=== PATIENT | female | born 2000 | race Caucasian/White ===

== ENCOUNTER → 2018-04-01 | Outpatient (REF) | payer OTHER | LOC: M LAB REF 12:11 | DX: N39.0 Urinary tract infection, site not specified (principal) | CPT/HCPCS: 87186 ==

== ENCOUNTER 2018-04-19 06:56 | Day surgery (SDC) | payer BC, OTHER ==
[2018-04-19] MEDS ORDERED: PROPOFOL 200 MG/20 ML VIAL As Ordered ×2 (07:06)
[2018-04-19] MEDS ORDERED: LIDOCAINE 2% INJ 100 MG/5 ML SDV (FOR ANES.) As Ordered (07:07)
[2018-04-19] MEDS: NS 1,000 ML IV (07:11)
== END 2018-04-19 09:15 | disposition home or self-care (01) ==
LOC: M OPP 06:56
DX: K59.00 Constipation, unspecified (principal); R10.9 Unspecified abdominal pain; K63.89 Other specified diseases of intestine; K64.8 Other hemorrhoids; K52.9 Noninfective gastroenteritis and colitis, unspecified; F41.9 Anxiety disorder, unspecified; E66.9 Obesity, unspecified; F90.9 Attention-deficit hyperactivity disorder, unspecified type; Z86.19 Personal history of other infectious and parasitic diseases; Z80.3 Family history of malignant neoplasm of breast
CPT/HCPCS: 45380

== ENCOUNTER 2020-06-04 18:25 | Inpatient (IN) | payer BC, OTHER ==
[~2020-06-04] VITALS: Ht 177.8 cm; Wt 102.5 kg
[~2020-06-04 18:25] MED LIST: AMPH1CAP5 PO; MIRE1IUD IU; PARO20TA3 PO
[2020-06-04 19:21] LABS: HEMATOCRIT 45.7 % (36.0-47.0); HEMOGLOBIN 14.7 g/dl (12.0-15.5); MEAN CORPUSCULAR HEMOGLOBIN 28.7 pg (27.0-33.0); MEAN CORPUSCULAR HGB CONC 32.2 g/dl (32.0-36.5); MEAN CORPUSCULAR VOLUME 89.3 fl (80.0-96.0); PLATELET COUNT, AUTOMATED 277 10^3/uL (150-450); RED BLOOD COUNT 5.12 10^6/uL (4.00-5.40); WHITE BLOOD COUNT 9.3 10^3/uL (4.0-10.0)
[2020-06-04 19:40] LABS: AMPHETAMINES LEVEL URINE POSITIVE (NEGATIVE); BARBITURATES URINE NEGATIVE (NEGATIVE); BENZODIAZEPINES URINE NEGATIVE (NEGATIVE); CANNABINOIDS URINE NEGATIVE (NEGATIVE); COCAINE METABOLITE URINE NEGATIVE (NEGATIVE); METHADONE URINE NEGATIVE (NEGATIVE); OPIATES URINE NEGATIVE (NEGATIVE); PHENCYCLIDINE URINE NEGATIVE (NEGATIVE)
[2020-06-04 19:50] LABS: ALT/SGPT 31 U/L (12-78); BILIRUBIN,DIRECT 0.1 MG/DL (0.0-0.2); BILIRUBIN,TOTAL 0.3 MG/DL (0.2-1.0); BLOOD UREA NITROGEN 8 MG/DL (7-18); CALCIUM LEVEL 9.5 MG/DL (8.5-10.1); CARBON DIOXIDE LEVEL 31 MEQ/L (21-32); CHLORIDE LEVEL 104 MEQ/L (98-107); CREATININE FOR GFR 0.88 MG/DL (0.55-1.30); GLOMERULAR FILTRATION RATE > 60.0 (>60); GLUCOSE, FASTING 95 MG/DL (70-100); POTASSIUM SERUM 3.9 MEQ/L (3.5-5.1); SALICYLATE LEVEL < 1.7 MG/DL (5.0-30.0); SODIUM LEVEL 142 MEQ/L (136-145); TOTAL PROTEIN 7.7 GM/DL (6.4-8.2)
[2020-06-04 19:51] LABS: ACETAMINOPHEN LEVEL < 2.0 UG/ML (10.0-30.0); ETHYL ALCOHOL (ETHANOL) < 0.003 % (0.000-0.010)
[2020-06-04] MEDS ORDERED: IBUPROFEN 600MG TAB PO ONE (20:45)
[2020-06-04] MEDS ORDERED: TRAZ-257 PO (21:18)
[2020-06-04] MEDS ORDERED: ADDE30CA3 PO (21:18)
[2020-06-04] MEDS ORDERED: ZIPR20CA13 PO (21:18)
[2020-06-04] MEDS ORDERED: ZIPR40CA11 PO (21:18)
[2020-06-04] MEDS ORDERED: hydrOXYzine 50 MG TAB PO STA (21:50)
[2020-06-04] MEDS ORDERED: OLANZapine ORAL DISINTEGRATING TAB 5MG PO ONE (22:45)
[2020-06-04] MEDS ORDERED: MOM 30ML SUSPENSION UDC PO PRN (22:45)
[2020-06-04] MEDS ORDERED: OLANZapine ORAL DISINTEGRATING TAB 5MG PO PRN (22:45)
[2020-06-04] MEDS ORDERED: ACETAMINOPHEN TAB 650MG DOSE (2X325MG) PO PRN (22:45)
[2020-06-04] MEDS ORDERED: MAALOX 30 ML SUSP *UDC PO PRN (22:45)
[2020-06-04 22:55] LABS: HCG, SERUM QUALITATIVE NEGATIVE (NEGATIVE)
[2020-06-05] MEDS: traZODone 100 MG TAB PO SCH ×2 (00:21→21:49)
[2020-06-05 06:38] VITALS: BP 139/84
--- NOTE | 2020-06-05 10:17 | HPEPDOC ---
[facility] Medical History & Physical Date of Admission Jun 05, 2020 Date of Service: Jun 05, 2020 History and Physical CHIEF COMPLAINT: Suicidal thoughts. HISTORY OF PRESENT ILLNESS: Patient is a 19-year-old female admitted to the psychiatric unit for suicidal thoughts. Patient tells me she has no past medical history other than ADHD. Tells me she is currently feeling anxious and came to the hospital because she was having thoughts of hurting herself. I am asked to provide a medical assessment of patient admitted to the psychiatric unit. My assessment is limited to medical problems and does not address any psychiatric problems which is deferred to the in-house psychiatrist. PAST MEDICAL HISTORY: ADHD PAST SURGICAL HISTORY: Denies SOCIAL HISTORY: Denies any illicit drug abuse. Denies smoking tobacco. Endorses drinking alcohol socially with friends. FAMILY HISTORY: Noncontributory ALLERGIES: Please see below. REVIEW OF SYSTEMS: Constitutional: No sweating or weight loss Eyes: No eye pain or acute blurred vision HENT: No complaints of headache or sore throat Cadiovascular: No Chest pain or palpitations Pulm: No SOB or cough Gastrointestinal: No N/V, no abdominal pain. Genitourinary: No dysuria or hematuria Musculoskeletal: No back pain or joint pain Skin: No rash Neurological: No weakness. HOME MEDICATIONS: Please see below. PHYSICAL EXAMINATION: Constitutional: Awake and alert, in no apparent distress. Overweight. ENT: Sclera are clear. Mucosa is moist. Respiratory: Lungs CTA bilaterally. No respiratory distress. No use of accessory muscles. Cardiovascular: RRR S1 and S2 are normal, no murmur Gastrointestinal: Abdomen is soft, non distended, non tender, BS present. Musculoskeletal: No edema Neurologic: No focal neurological deficit. Mental Status: A&O x3, normal affect Skin: Warm, dry LABORATORY DATA: See below. MICROBIOLOGY: Please see below. A/P 19-year-old female admitted for suicidal thoughts. Hospitalist was asked to do a medical evaluation. Patient's appears healthy other than psychiatric issues. #Elevated blood pressure without a diagnosis of hypertension: There was one elevated blood pressure reading of 139/84 this morning. Patient does not have a history of hypertension. If blood pressure remains in this range I would start with lifestyle modifications including healthier diet and avoiding salt in the diet as well as weight loss as patient is obese. I discussed this with the patient. I would hold off on starting antihypertensive this time. # TSH elevated: TSH is elevated to 5.1. I recommend obtaining a free T4. If normal patient can follow-up with her PCP. If abnormal please notify me # ADHD: Per psych A Yousef Hospitalist Vital Signs Vital Signs Date Time Temp Pulse Resp B/P (MAP) Pulse Ox O2 Delivery O2 Flow Rate FiO2 06/05/20 06:38 97.0 96 12 139/84 (102) Room Air 06/04/20 18:26 100 Laboratory Data Labs 24H Laboratory Tests 2 06/04/20 18:57: Nucleated Red Blood Cells % (auto) 0.0, Anion Gap 7L, Glomerular Filtration Rate > 60.0, Calcium Level 9.5, Total Bilirubin 0.3, Direct Bilirubin 0.1, Aspartate Amino Transf (AST/SGOT) 14, Alanine Aminotransferase (ALT/SGPT) 31, Alkaline Phosphatase 103, Total Protein 7.7, Albumin 4.0, Albumin/Globulin Ratio 1.1L, Thyroid Stimulating Hormone (TSH) 5.160H, Human Chorionic Gonadotropin, Qual NEGATIVE, Salicylates Level < 1.7L, Urine Opiates Screen NEGATIVE, Urine Methadone Screen NEGATIVE, Acetaminophen Level < 2.0L, Urine Barbiturates Screen NEGATIVE, Urine Phencyclidine Screen NEGATIVE, Urine Amphetamines Screen POSITIVEH, Urine Benzodiazepines Screen NEGATIVE, Urine Cocaine Metabolite Screen NEGATIVE, Urine Cannabinoids Screen NEGATIVE, Ethyl Alcohol Level < 0.003 CBC/BMP Laboratory Tests 06/04/20 18:57 Home Medications Scheduled Dextroamphetamine/Amphetamine (Adderall Xr 30 mg Capsule) 30 Mg Cap.er.24h, 30 MG PO QAM Trazodone HCl (Trazodone HCl) 100 Mg Tablet, 100 MG PO QHS Ziprasidone HCl (Ziprasidone HCl) 20 Mg Capsule, 20 MG PO QAM Ziprasidone HCl (Ziprasidone HCl) 40 Mg Capsule, 40 MG PO QHS Allergies Coded Allergies: amoxicillin (Verified Allergy, Mild, RASH, 06/04/20) A-FIB/CHADSVASC A-FIB History Current/History of A-Fib/PAF?: No MAXWELLSEJANINA March MD Jun 05, 2020 09:56
[2020-06-05 10:46] LABS: FREE T4 0.98 NG/DL (0.76-1.46)
[2020-06-05] MEDS: OLANZapine ORAL DISINTEGRATING TAB 5MG PO PRN (14:47)
[2020-06-05] MEDS: ZIPRASIDONE 20MG CAPSULE (GEODON) PO SCH (17:17)
[2020-06-05 18:00] VITALS: BP 121/79
[2020-06-06 06:53] VITALS: BP 131/81
[2020-06-06] MEDS: ZIPRASIDONE 20MG CAPSULE (GEODON) PO SCH ×2 (09:33→18:03)
[2020-06-06] MEDS: OLANZapine ORAL DISINTEGRATING TAB 5MG PO PRN ×2 (13:11→18:40)
[2020-06-06 17:47] VITALS: BP 126/77
[2020-06-06] MEDS: traZODone 100 MG TAB PO SCH (21:36)
[2020-06-07 06:40] VITALS: BP 140/80
[2020-06-07] MEDS: ZIPRASIDONE 20MG CAPSULE (GEODON) PO SCH (07:43)
--- NOTE | 2020-06-07 08:56 | IPNPDOC ---
Text Note Date of Service The patient was seen on 06/07/20. NOTE Subjective Patient was seen and examined this morning. No overnight medical events reported to me. Asked to reevaluate the patient's morning. Blood pressure still elevated patient tells me it's because she is very stressed while in the psychiatric unit unit waiting to see psychiatrist and hoping to leave because she has a court date. Objective Constitutional: Awake and alert, in no apparent distress. Overweight. Appears calm ENT: Sclera are clear. Mucosa is moist. Respiratory: Lungs CTA bilaterally. No respiratory distress. No use of accessory muscles. Cardiovascular: RRR S1 and S2 are normal, no murmur Gastrointestinal: Abdomen is soft, non distended, non tender, BS present. Musculoskeletal: No edema Neurologic: No focal neurological deficit. Mental Status: A&O x3, normal affect Skin: Warm, dry Assessment/plan 19-year-old female admitted for suicidal thoughts. Hospitalist was asked to do a medical evaluation. Patient's appears healthy other than psychiatric issues. # Essential HTN: Blood pressure has been elevated on multiple occasions. Patient can now be diagnosed with essential hypertension. I would continue with lifestyle modifications including healthier diet and avoiding salt in the diet as well as weight loss as patient is obese. There is a possibility that patient's blood pressure is elevated due to stress well being admitted to the inpatient setting so I will not start an antihypertensive this time and will have the issue follow-up with PCP and recheck blood pressure to see appropriateness of starting antihypertensives. I'm hesitant to start antihypertensives and such a young person without first allowing some time for mitral modifications. # TSH elevated: TSH is elevated to 5.1. free T4 is normal. Can follow-up with her PCP to recheck TSH in 4-6 weeks. # Rest per psych A Yousef Hospitalist VS,Petey, I+O VS, Petey, I+O Vital Signs Date Time Temp Pulse Resp B/P (MAP) Pulse Ox O2 Delivery O2 Flow Rate FiO2 06/07/20 06:40 97.6 89 14 140/80 (100) 100 Room Air JANINA SOLOMON MD Jun 07, 2020 08:56
[2020-06-07] MEDS: OLANZapine ORAL DISINTEGRATING TAB 5MG PO PRN ×2 (09:06→14:43)
[2020-06-07] MEDS ORDERED: GEOD20CA PO (13:59)
--- NOTE | 2020-06-07 15:32 | MHDSPDOC ---
[facility] Discharge Summary Discharge Summary DATE OF ADMISSION: Jun 04, 2020 at 22:39 DATE OF DISCHARGE: June 07, 2020 at 1512 DISCHARGE DIAGNOSES: 1. Schizoaffective Disorder REASON FOR ADMISSION: Patient is a 19 year old Single, Employed, Domiciled, Female who self-reported to [facility] for complaints of mood swings, depressive symptoms, auditory and visual hallucinations and paranoia. Patient was reported increased paranoid thoughts, states that she had to write her symptoms on notes because she has a memory. Complaints of having poor supports, lives alone, reports having fears of being alone or killed. CONSULTANTS INVOLVED: See Medical H + P by Medical MD TREATMENT AND PROGRESS ON THE UNIT : Patient was admitted on 06/04/2020 for her complaints of mood swings and psychotic symptoms. Patient was afforded the following treatment modalities: 1. Individual Therapy 2. Group Therapy 3. Medication Management 4. Milieu Therapy 5. Safe Environment HOSPITAL COURSE: Patient was started on her home medications, with an increase of Geodon to 40 mg twice daily. On interview patient is reporting an improvement in her thinking, denies mood swings, depression, anxiety and states that she is not having paranoid thoughts. DISCHARGE ASSESSMENT: Patient is stable for discharge. She has a future appointment with her therapist and is requesting discharge today because she has a dog that she is worried about. Her boyfriend is caring for the dog but she feels that this is not his responsibility and states that she is appreciative but needs to be able to care for her dog. She also states that she would like to return to work and has some general cleaning to do before she returns to work tomorrow. MENTAL STATUS EXAMINATION ON DISCHARGE: Patient is a 23-year old female, who is reporting no depressive or suicidal ideation today. She appears her stated age, she is bright mood and affected. She is dressed appropriate, her hygiene and grooming is good. Eye contact is good Speech is spontaneous, fluid and conversant. She has normal tone, volume and rate Language skills are good. Thought processes including: reality based, linear and goal oriented. Thought content: no abnormal psych symptoms noted in the interview Abstract reasoning, and computation: good Description of associations: denies/not observed Description of abnormal or psychotic thoughts: denies/not observed Judgment: good Insight: good Orientation to person, place, time and situation Recent and remote memory: intact. Attention span and concentration: good. Language: expansive Fund of knowledge: average Mood: "I feel better" Affect: congruent with stated mood MEDICATIONS ON DISCHARGE: See Medication Reconciliation PLAN/FOLLOWUP ARRANGEMENTS: [facility] The amount of time spent in the coordination of care for this patient was approximately 30 minutes. Vital Signs/I&Os Vital Signs Date Time Temp Pulse Resp B/P (MAP) Pulse Ox O2 Delivery O2 Flow Rate FiO2 06/07/20 06:40 97.6 89 14 140/80 (100) 100 Room Air Medications Scheduled Dextroamphetamine/Amphetamine (Adderall Xr 30 mg Capsule) 30 Mg Cap.er.24h, 30 MG PO QAM, (Reported) Trazodone HCl (Trazodone HCl) 100 Mg Tablet, 100 MG PO QHS, (Reported) Ziprasidone HCl (Geodon) 20 Mg Capsule, 40 MG PO BIDWM for Antipsychotic, #28 Allergies Coded Allergies: amoxicillin (Verified Allergy, Mild, RASH, 06/04/20) JOVANNY COLEMAN NP Jun 07, 2020 15:32
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
== END 2020-06-07 16:50 | disposition home or self-care (01) | DRG 885 ==
LOC: M ED 18:25 → M ED INP 22:39 → M PSY 23:43
PROVIDERS: ADMIT Psychiatry & Neurology Psychiatry; ATTEND Psychiatry & Neurology Psychiatry
DX: F25.9 Schizoaffective disorder, unspecified (principal); F90.9 Attention-deficit hyperactivity disorder, unspecified type; Z91.14 Patient's other noncompliance with medication regimen; I10 Essential (primary) hypertension; Z79.899 Other long term (current) drug therapy; Z88.0 Allergy status to penicillin; E66.9 Obesity, unspecified; Z68.32 Body mass index [BMI] 32.0-32.9, adult